=== PATIENT | male | born 1990 | race African-American/Black ===

== ENCOUNTER 2017-09-19 01:28 | Emergency (ER) | payer MEDICAID ==
[~2017-09-19] VITALS: Ht 175.3 cm; Wt 104.3 kg
[2017-09-19 01:42] VITALS: BP 132/73
[2017-09-19 02:57] LABS: ANION GAP 18.8 (8-16); CARBON DIOXIDE 25.4 mmol/L (21-32); CREATININE 1.3 mg/dL (0.7-1.3); POTASSIUM 4.2 mmol/L (3.5-5.1)
[2017-09-19 03:03] LABS: ALBUMIN 3.8 g/dL (3.4-5.0); TOTAL BILIRUBIN 0.4 mg/dL (0.0-1.0)
[2017-09-19 03:43] VITALS: BP 119/75
== END 2017-09-19 03:43 | disposition home or self-care (01) ==
LOC: MED 01:28
DX: M79.5 Residual foreign body in soft tissue (principal)
CPT/HCPCS: 36415; 70250; 80053; 81002; 83690; 99285

== ENCOUNTER 2017-09-20 15:28 | Emergency (ER) | payer MEDICAID ==
[~2017-09-20] VITALS: Ht 172.7 cm; Wt 97.5 kg
[2017-09-20 15:36] VITALS: BP 151/84
--- NOTE | 2017-09-20 15:39 | NUR ---
PT AMBULATED TO ER BED 07
--- NOTE | 2017-09-20 15:50 | NUR ---
PATIENT PRESENTS TO ED WITH COMPLAINTS OF PAIN AT RIGHT EYE DUE TO FOREIGN BODY. PATIENT STATES HE HAS GLASS EMBEDED INTO HIS SKIN AT HIS RIGHT EYE. PATIENT REQUESTING REMOVAL OF FOREIGN BODY. DENIES N/V/D; SKIN AROUND EYE APPEARS BUMPY; AAOX4 WITH EVEN AND STEADY GAIT; LUNGS CLEAR BL; HR EVEN AND REGULAR; PT DENIES ANY FEVER, CP, SOB, OR COUGH AT THIS TIME; PATIENT STATES PAIN OF 8/10 AT THIS TIME; VSS; PATIENT POSITIONED FOR COMFORT; HOB ELEVATED; BEDRAILS UP X1; BED DOWN. ER MD MADE AWARE OF PT STATUS.
--- NOTE | 2017-09-20 17:00 | NUR ---
Patient appears to be resting comfortably in bed. Vital Signs within normal limits. Respirations even and unlabored.
[2017-09-20 18:48] VITALS: BP 145/80
--- NOTE | 2017-09-20 18:50 | NUR ---
Patient discharged with v/s stable. Written and verbal after care instructions given and explained. Patient verbalized understanding. Ambulatory with steady gait. All questions addressed prior to discharge. Advised to follow up with PMD.
== END 2017-09-20 18:50 | disposition left against medical advice (07) ==
LOC: MED 15:28
DX: S00.211A Abrasion of right eyelid and periocular area, initial encounter (principal); S00.81XA Abrasion of other part of head, initial encounter; J45.909 Unspecified asthma, uncomplicated; Z91.19 Patient's noncompliance with other medical treatment and regimen; X58.XXXA Exposure to other specified factors, initial encounter; Y93.89 Activity, other specified; Y99.8 Other external cause status; Y92.89 Other specified places as the place of occurrence of the external cause
CPT/HCPCS: 81002; 99283